=== PATIENT | male | born 1980 | race Caucasian/White ===

== ENCOUNTER 2021-11-13 00:24 | Day surgery (SDC) | payer BC, SELFPAY ==
[2021-10-29 13:41] VITALS: BMI 27.9
[2021-11-13 07:08] VITALS: BP 130/73; PULSE 83; RESP 18; TEMP 36.4; O2SAT 98
[2021-11-13] MEDS: LACTATED RINGERS 1,000 ML 150 ML IV CONT (07:12)
--- NOTE | 2021-11-13 07:39 | WPDANESEPPF ---
Anes - Initial Pre Proc Eval Procedure: Operation Date: 11/13/21 08:30 Proposed Procedures p Colonoscopy - Wiley Ansari MD Date/Time: 11/13/21 07:39 Surgeon: Wiley Ansari MD Pre Op Diagnosis: diarrhea Patient Data Age: 41 Gender: M Height: 1.8 m Weight: 81.4 kg Last Vital Signs Temp 36.4 C 11/13/21 07:08 Pulse 83 11/13/21 07:08 Resp 18 11/13/21 07:08 BP 130/73 11/13/21 07:08 Pulse Ox 98 11/13/21 07:08 Allergies Allergy/AdvReac Type Severity Reaction Status Date / Time No Known Allergies Allergy Verified 11/13/21 07:07 Home Medications Medication Instructions Recorded Confirmed Type levocetirizine 5 mg tablet 5 mg PO DAILY 10/15/21 11/13/21 History Patient hx anesthesia problems: none Family hx anesthesia problems: none Results Review: All pre-operative results and documents have been reviewed as part of the pre-operative evaluation. [facility], [facility] Past Medical History Medical History Frequent loose stools Family History Family History Father Hypertension Sibling Thyroid disorder Social History Social History Smoking status: Never smoker Alcohol intake: current Drinks per week: 1 Living arrangements: with family Spiritual care concerns: No Anes - Eval Final PreProcedure Day of Procedure 11/13/21 07:39 Patient weight: normal Heart: regular rate and rhythm Lungs: clear to auscultation Airway: Mallampati scale class II Neurological: alert and oriented Last oral intake: >/= 8 hours ASA classification: I Emergent: no Anesthetic plan: proceed Anesthesia type and monitoring: general GIVS and standard monitoring Results Review: All pre-operative results and documents have been reviewed as part of the pre-operative evaluation. Informed Consent: The patient's anesthetic plan and its attendant risks and benefits were discussed with the patient/family/POA. Questions were solicited and answers provided to the satisfaction of the patient/family/POA.
--- NOTE | 2021-11-13 08:10 | P.CONGI_ITS ---
Assessment and Plan Assessment and plan (1) Frequent loose stools: Code(s): R19.7 - Diarrhea, unspecified Status: Acute (2) Bloating: Code(s): R14.0 - Abdominal distension (gaseous) Status: Acute Assessment and Plan: Patient complains of abdominal bloating irregular stools. Etiology of this is most suspicious for irritable bowel syndrome. Other organic disease cannot be excluded a colonoscopy will be performed today. Would recommend starting patient on FiberCon 2 tabs p.o. b.i.d. initially further recommendations pending results of colonoscopy. GI Consult Note Consult date/time: 11/13/21 08:10 HPI: Justice William is a 41 year old male Presents for colonoscopy. Patient complains of alteration in bowel habits along with abdominal bloating. He states symptoms have been present most of this year. Symptoms are very vague and diffuse. He notes intermittent bloating but occurs 2 to 3 times a week and lasts for most of the day. Patient reports his diarrhea his bowel habits fl uctuate from diarrhea to constipation. Denies any bleeding or weight loss. He has undergone outpatient evaluation and lab testing to exclude celiac disease as well as an IBD panel. He was apparently tried on fiber supplements but stopped these because of flatus. A colonoscopy is recommended at this time to exclude organic disease. Review of Systems Review of Systems: All systems reviewed & are unremarkable except as noted in HPI and below PMFSH Past Medical History Medical History Frequent loose stools Family History Family History Father Hypertension Sibling Thyroid disorder Social History Social History Smoking status: Never smoker Alcohol intake: current Drinks per week: 1 Living arrangements: with family Spiritual care concerns: No Meds Home Medications and Allergies Home Medications Medication Instructions Recorded Confirmed Type levocetirizine 5 mg tablet 5 mg PO DAILY 10/15/21 11/13/21 History Allergies Allergy/AdvReac Type Severity Reaction Status Date / Time No Known Allergies Allergy Verified 11/13/21 07:07 Vital Signs Vital Signs - 24 hr 11/13/21 07:08 Temperature 97.6 F Pulse Rate 83 Respiratory Rate 18 Blood Pressure 130/73 Pulse Oximetry 98 Exam Narrative: Physical exam reveals patient be alert. Vital signs stable. HEENT exam is unremarkable. Patient is anicteric. Lungs are clear to auscultation and percussion. Heart is without murmur or extra sounds. Abdominal exam bowel sounds are present soft nontender with no organomegaly. Digital external rectal exam is normal.
[2021-11-13 09:05] VITALS: BP 86/52; PULSE 69; RESP 15; O2SAT 96
[2021-11-13 09:15] VITALS: BP 110/69; PULSE 73; RESP 24; O2SAT 96
[2021-11-13 09:25] VITALS: BP 113/74; PULSE 72; RESP 19; O2SAT 98
== END 2021-11-13 09:35 | disposition home or self-care (01) ==
PROVIDERS: PCP Family Medicine; Visit Provider Internal Medicine Gastroenterology
PROC: 0DJD8ZZ Inspection of Lower Intestinal Tract, Via Natural or Artificial Opening Endoscopic (ICD-10-PCS; CPT 45378; principal; 2021-11-13 08:30)
DX: R19.7 Diarrhea, unspecified (principal); R14.0 Abdominal distension (gaseous)
CPT/HCPCS: 45380; 88305; J2704; J7120

== ENCOUNTER → 2024-01-11 15:30 | Outpatient (CLI) | payer BC, SELFPAY ==
--- NOTE | ~2024-01-11 | CT_ITS ---
CT of the Abdomen and Pelvis: Indication: Abnormal findings of kidney Technique: 2.5 mm axial scans were obtained through the abdomen and pelvis following intravenous adm inistration of 100 cc of Omnipaque 350. Dose reduction technique was used on this scan by utilizing a utomated exposure control and iterative reconstruction technique. The dose-length product (DLP) was 6 79.29 mGy-cm. COMPARISON: 05/28/2023 Findings: Scans through the lung bases demonstrates stable 4 mm right lower lobe pulmonary nodule. The liver, spleen, pancreas, gallbladder, an adrenal glands are within normal limits. There are bilat eral small renal cysts. There are probably layering calcifications within a right renal cyst (coronal image 72). No evidence of aortic aneurysm. No lymphadenopathy. No bowel obstruction or bowel wall thickening. There is no evidence to suggest acute appendicitis. Images through the pelvis were performed. Urinary bladder unremarkable. No pelvic mass seen. No ascit es. Impression: Small bilateral renal cysts with probable layering calcifications within one right-sided renal cyst. No overtly suspicious right renal lesion identified on this exam. Stable 4 mm right lower lobe pulmonary nodule. Reviewed, dictated and finalized at [facility]. RINTENDENT OVERHEAD DISTRIBUTION Impression: Small bilateral renal cysts with probable layering calcifications within one ri ght-sided renal cyst. No overtly suspicious right renal lesion identified on is exam. Stable 4 mm right lower lobe pulmonary nodule.
== END ==
PROVIDERS: PCP Family Medicine; Visit Provider Family Medicine
DX: R93.429 Abnormal radiologic findings on diagnostic imaging of unspecified kidney (principal); N28.1 Cyst of kidney, acquired; R91.1 Solitary pulmonary nodule
CPT/HCPCS: 74177; Q9967

== ENCOUNTER 2024-06-13 15:31 | Outpatient (CLI) | payer BC, SELFPAY ==
--- NOTE | ~2024-06-13 | CT_ITS ---
CT Scan of the Chest without Contrast: Clinical Indication: Lung nodule Technique: Contiguous sections were acquired throughout the chest without intravenous contrast. Dose reduction technique was used on this scan by utilizing automated exposure control and iterative recon struction technique. The dose-length product (DLP) was 156.40 mGy-cm. COMPARISON: 05/28/2023 Findings: There is no evidence of any significant mediastinal, hilar or axillary lymphadenopathy. The mediastin al soft tissues appear normal. There is no evidence of pleural or pericardial effusion. Stable 4 mm right lower lobe pulmonary nodule (axial image 85). Stable 3 mm left lower lobe pulmonary nodule (axial image 83). Images through the upper abdomen reveal probable diffuse hepatic steatosis.. Impression: Stable subcentimeter pulmonary nodules, as detailed above. Reviewed, dictated and finalized at location . Impression: Stable subcentimeter pulmonary nodules, as detailed above.
== END 2024-06-13 15:32 ==
LOC: MICIMG 15:32
PROVIDERS: PCP Family Medicine; Visit Provider Family Medicine
DX: R91.8 Other nonspecific abnormal finding of lung field (principal)
CPT/HCPCS: 71250

== ENCOUNTER 2024-09-23 15:08 | Outpatient (CLI) | payer BC, SELFPAY ==
--- NOTE | ~2024-09-23 | XR_ITS ---
EXAM: XR knee RT 3V DATE: 09/23/2024 15:26 HISTORY: PAIN IN R KNEE . COMPARISON: None available. FINDINGS: Normal mineralization. No fracture or dislocation. No lytic or blastic lesion. Mild medial joint space narrowing. Mild tricompartmental osteophytosis. Moderate volume joint fluid. No erosion or periosteal change. Soft tissues within normal limits. IMPRESSION: Moderate right knee joint effusion. Mild tricompartmental osteoarthritis. Reviewed, dictated and finalized at location [facility] IMPRESSION: Moderate right knee joint effusion. Mild tricompartmental osteoarth ritis.
== END 2024-09-23 15:09 | disposition home or self-care (01) ==
LOC: MICIMG 15:10
PROVIDERS: PCP Family Medicine
DX: M17.11 Unilateral primary osteoarthritis, right knee (principal); M25.461 Effusion, right knee
CPT/HCPCS: 73562